=== PATIENT | female | born 2005 | race Caucasian/White ===

== ENCOUNTER 2025-02-11 11:20 | Emergency (ER) | payer BC, SELFPAY ==
[2025-02-11 11:29] VITALS: BP 116/62; PULSE 103; RESP 16; TEMP 36.9; O2SAT 98
--- NOTE | 2025-02-11 11:32 | ED_ITS ---
HPI - General Adult General Chief complaint: Unspecified Stated complaint: swollen vagina area Time Seen by Provider: 02/11/25 11:32 Source: patient and RN notes reviewed Mode of arrival: ambulatory Limitations: no limitations History of Present Illness HPI narrative: 19 y/o female presented for c/o waking up today with redness and swelling to vaginal area. Also reports itching and pain. Admits to new use of silicone sex toy, otherwise denies changes to products, soap, lotion, detergent. Denies vaginal discharge hematuria, nausea, vomiting, abdominal pain, flank pain, constipation, diarrhea, fevers or chills. Applied cool compresses to the area and took Motrin. Reports unprotected sexual activity with more than one partner. Denies concern for stating she has IUD. Related Data Home Medications ?Medication ?Instructions ?Recorded ?Confirmed ?Last Taken ?Type aripiprazole 2 mg tablet mg 02/11/25 Unknown History escitalopram oxalate 10 mg tablet mg 02/11/25 Unknown History fluvoxamine 50 mg tablet mg 02/11/25 Unknown History iud 02/11/25 Unknown History tirzepatide 5 mg/0.5 mL mg subcut 02/11/25 Unknown History subcutaneous pen injector (Mounjaro) Allergies Allergy/AdvReac Type Severity Reaction Status Date / Time No Known Allergies Allergy Verified 02/11/25 11:39 Review of Systems Review of Systems: CONSTITUTIONAL: Denies body aches, fever, chills, or sweats. CARDIOVASCULAR: Denies chest pain, palpitations, or edema. RESPIRATORY: Denies cough or dyspnea. GASTROINTESTINAL: Denies abdominal pain, nausea, vomiting, or diarrhea. GENITOURINARY: Reports swollen labia, denies dysuria, frequency, urgency, hematuria, flank pain SKIN: Denies rash, itching, or wounds. MUSCULOSKELETAL: Denies back pain or myalgia. PMFSH Comments At time of signature, I have reviewed and agree with nursing past medical, surgical, social and family history unless otherwise noted. Please see nursing chart for further information. There is no relevant family history pertinent to the presenting complaint Exam Narrative: GENERAL: Well-appearing ENT: Mucous membranes pink and moist. CHEST: No respiratory distress. Clear to auscultation. HEART: Regular rate and rhythm. ABDOMEN: Soft, mildly tender to suprapubic area, nondistended, normal active bowel sounds. No CVA tenderness : External labia swollen, tender, and mildly erythematous; no external lesions. vaginal introitus, pink. Dixon colored discharge from cervix with scant blood. No foreign body, laceration or lesions. Cervix closed. Chaperoned by Talita WOOD SKIN: Warm, dry, no rash. NEURO: No focal deficits. Alert and oriented x3. Gait steady. PSYCH: Normal affect. Course Course Emergency Course: Patient is aware of diagnosis, understands and agrees to treatment plan. Anticipatory guidance given. Patient agrees to follow-up as directed and is aware of reasons to seek care at the emergency department. Portions of this record may have been created with voice recognition software Level of Care: Express Care Visit Vital Signs Vital signs: Vital Signs Temperature 98.4 F 02/11/25 11:29 Pulse Rate 103 H 02/11/25 11:29 Respiratory Rate 16 02/11/25 11:29 Blood Pressure 116/62 02/11/25 11:29 Pulse Oximetry 98 02/11/25 11:29 Oxygen Delivery Room Air 02/11/25 11:29 Temperature 98.4 F 02/11/25 11:29 Pulse Rate 103 H 02/11/25 11:29 Respiratory Rate 16 02/11/25 11:29 Blood Pressure 116/62 02/11/25 11:29 Pulse Oximetry 98 02/11/25 11:29 Oxygen Delivery Room Air 02/11/25 11:29 Reviewed Medical Decision Making MDM Narrative Medical decision making narrative: Patient presenting with concern for STD. Vaginal swabs collected for GC, chlamydia, trich, BV and yeast. Informed Pt will be contacted w/ results when they become available if they are positive. Discussed with patient that it takes up to 7 days for results of cultures to be released and explained that we may treat empirically at this time. Declines treatment at this time and will return should tests be positive, agrees to treat possible yeast at this time. I have instructed the patient to return to the ER at any time if there are any new or worsening symptoms. The patient expressed understanding of and agreement with this plan. Differential Diagnosis Differential Diagnosis: vulvovaginitis, yeast, BV, STD, PID, HSV Vital Signs Vital Signs: Vital Signs Temperature 98.4 F 02/11/25 11:29 Pulse Rate 103 H 02/11/25 11:29 Respiratory Rate 16 02/11/25 11:29 Blood Pressure 116/62 02/11/25 11:29 Pulse Oximetry 98 02/11/25 11:29 Oxygen Delivery Room Air 02/11/25 11:29 Temperature 98.4 F 02/11/25 11:29 Pulse Rate 103 H 02/11/25 11:29 Respiratory Rate 16 02/11/25 11:29 Blood Pressure 116/62 02/11/25 11:29 Pulse Oximetry 98 02/11/25 11:29 Oxygen Delivery Room Air 02/11/25 11:29 Discharge Plan Discharge Clinical Impression: Acute vulvovaginitis, Concern about STD in female without diagnosis Patient Disposition: Home, Self-Care Condition: Stable Instructions: Antibiotic Form, Yeast Infection (ED) Additional Instructions: Keep skin clean, dry and well aerated Wear cotton underpants. Double rinse underpants after washing. Avoid fabric softeners for underpants and swimsuits. Avoid tights, leotards, leggings. Wearing loose fitting pants/skirts allow air to circulate. Avoid wearing wet swimsuits for long periods of time. Avoid bubble baths or perfumed soap Rinse genital area well and pat dry gently Cool compresses may help relieve the redness/irritation. Aquaphor, vaseline or A&D ointment may help protect the skin. Your urine has been sent off to test for gonorrhea, chlamydia, and trichomonas, BV and yeast infections. You will be called if any of your tests come back positive. These tests can take up to 5 days to come back. If your tests come back positive you will need further treatment, and you will need to notify any partners that you have so they can be tested and treated. To avoid reinfection, you are advised to abstain from sexual intercourse until you and sex partners have been treated (ie, after completing the 7-day antibiotic regimen, and any symptoms have resolved. You are treated for yeast today. If your symptoms worsen to include fever, abdominal pain, or back pain, please go to the hospital immediately. Follow up with your primary care provider/obgyn as needed in 1 week Go to the ER for worsening symptoms or concerns Patient Language: Hungarian Prescriptions: New fluconazole 150 mg tablet 150 mg PO DAILY Qty: 2 0RF No Action fluvoxamine 50 mg tablet escitalopram oxalate 10 mg tablet aripiprazole 2 mg tablet Mounjaro 5 mg/0.5 mL pen injector SUBCUT iud Follow-up/Referrals: PHYSICIAN,RADIOLOGIC TECHNOLOGIST CHIEF [Primary Care Provider] - Stand Alone Forms: Work/School Release IP
--- NOTE | 2025-02-11 12:04 | PC.NURSE ---
pelvic exam done by furnace clerk with rn at bedside. bv, gc, chlam, trich, and yeast swabs obtained.
--- OUTSIDE RECORDS SUMMARY | 2025-02-11 12:16 | XMS_ITS | Clinical Summary ---
Author Organization 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 - [facility] [place] [address] [place] [address] Tiffanie Arguelles, MAINTENANCE PLUMBER, AUTOMOTIVE AIRCONDITIONING MECHANIC Viral URI (Primary Dx); Sore throat Discharge Disposition: Discharged to home or Selfcare 12/20/2024 Travel from Last 3 Months Immunizations Immunization Administration Dates Next Due Covid-19, Mrna, Lnp-s, Pf, 3 0 Mcg/0.3 Ml Dose ([employer]) 06/25/2021,06/04/2021 DTAP VACCINE 09/24/2006 DTAP VACCINE, 5 PERTUSSIS AN TIGENS, VACCINE IM 2005,2005,2005 HEP B/HIB Combined Vaccine 03/18/2006,2005 ,2005 MMR Vaccine 03/18/2006 Pneumococcal Vaccine Peds - 7 Valent 11/2005,2005,2005,2004 Polio Vaccine,unspecified Formulation 06/17/2006 ,2005,2005 Varicella Vaccine Live 03/18/2006 Social History Tobacco Use Types Packs/Day Years Used Date Smoking Tobacco: Every Day Cigarettes Smokeless Tobacco: Never Tobacco Cessation:Ready to Q uit: Not Asked; Counseling Given: Not Answered Comments No Sex and Gender Information Value Date Recorded Sex Assigned at Not on file Legal Sex Female 12:00 PM OYSTER FARMER Gender Identity Not on file Sexual Orientation Not on file Last Filed Vital Signs Vital Sign Reading Time Taken Comments Blood Pressure 106/60 12/20/2024 12:57 PM OYSTER FARMER Pulse 98 12/20/2024 12:57 PM OYSTER FARMER Temperature 36.3 C (97.3 F) 12/20/2024 12:57 PM OYSTER FARMER Respiratory Rate 16 12/20/2024 12:57 PM OYSTER FARMER Oxygen Saturation 99% 12/20/2024 12:57 PM OYSTER FARMER Inhaled Oxygen Concentration - - Weight - - Height - - Body Mass Index - - Plan of Treatment Health Maintenance Due Date Last Done Comments Hepatitis C Virus (HCV) Screening 2005 DTaP/Tdap/Td Immunization (5 - Tdap) 2012 09/24/2006, 2005, 2005, Additional history exists Human Papillomavirus (HPV) Immunization (1 - 3-dose series) 2020 Meningococcal B Immunization (1 of 2 - Standard) 2021 Influenza Immunization (#1) 2024 SARS-COV-2 Immunization (3 - season) 2024 06/25/2021, 06/04/2021 Respiratory Syncytial Virus (RSV) Immunization (Adult) (1 - 1-dose 75+ series) 2080 Hepatitis B Immunization Completed 006, 2005, 2005 Pneumococcal Immunization Combined Aged Out 06/17/2006, 2005, 2005, Additional history exists No longer eligible based on patient's age to complete this topic Meningococcal Immunization (ACWY) Aged Out No longer eligible based on patient's age to complete this topic Rotavirus Immunization Aged Out No lo nger eligible based on patient's age to complete this topic Procedures Procedure Name Priority Date/Time Associated Diagnosis Comments POC GROUP A STREP BY MOLECULAR Routine 12/20/2024 1:05 PM OYSTER FARMER Sore throat from Last 3 Months Results * POC GROUP A STREP BY MOLECULAR (12/20/2024 1:05 PM OYSTER FARMER) STREP A DNA Negative Negative, Invalid PROCEDURE CONTROL Valid Swab 12/20/2024 1:05 PM OYSTER FARMER Tiffanie Arguelles MAINTENANCE PLUMBER, AUTOMOTIVE AIRCONDITIONING MECHANIC POINT OF CARE TESTI NG (MANUAL) Final Result from Last 3 Months Insurance [facility] [place] [id number] [facility] Care Teams Co Teacher Relationship Specialty Start Date End Date Provider, Unknown UNKNOWN PCP - General 12/20/24
[2025-02-11 18:55] LABS: Trichomonas Vag PCR DETECTED (NOT DETECTE)
[2025-02-11 19:32] LABS: Chlamydia trachomatis DETECTED (NOT DETECTE); Neisseria gonorrhoeae PCR NOT DETECTED (NOT DETECTE)
[2025-02-14 16:57] LABS: Bacterial Vaginosis NEGATIVE (NEGATIVE)
== END 2025-02-11 12:20 | disposition home or self-care (01) ==
PROVIDERS: Emergency Provider Nurse Practitioner Family
DX: N76.0 Acute vaginitis (principal); Z11.3 Encounter for screening for infections with a predominantly sexual mode of transmission
CPT/HCPCS: 81513; 87070; 87491; 87591; 87661; 99203; G0463

== ENCOUNTER 2025-03-01 16:44 | Emergency (ER) | payer BC, SELFPAY ==
[2025-03-01 16:46] VITALS: BP 102/68; PULSE 90; RESP 20; TEMP 36.9; O2SAT 99
--- OUTSIDE RECORDS SUMMARY | 2025-03-01 17:00 | XMS_ITS | Clinical Summary ---
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 Urgent Care Visit [facility] - [facility] [place] [address] [place] [address] Tiffanie Arguelles, SITE SURVEYOR, APARTMENT RENTAL AGENT Viral URI (Primary Dx); Sore throat Discharge Disposition: Discharged to home or Selfcare 12/20/2024 Travel from Last 3 Months Immunizations Immunization Administration Dates Next Due Covid-19, Mrna, Lnp-s, Pf, 3 0 Mcg/0.3 Ml Dose ([employer]) 06/25/2021,06/04/2021 DTAP VACCINE 09/24/2006 DTAP VACCINE, 5 [...] on file Legal Sex Female 12:00 PM PASTE PLANT SUPERVISOR Gender Identity Not on file Sexual Orientation Not on file Last Filed Vital Signs Vital Sign Reading Time Taken Comments Blood Pressure 106/60 12/20/2024 12:57 PM PASTE PLANT SUPERVISOR Pulse 98 12/20/2024 12:57 PM PASTE PLANT SUPERVISOR Temperature 36.3 C (97.3 F) 12/20/2024 12:57 PM PASTE PLANT SUPERVISOR Respiratory Rate 16 12/20/2024 12:57 PM PASTE PLANT SUPERVISOR Oxygen Saturation 99% 12/20/2024 12:57 PM PASTE PLANT SUPERVISOR Inhaled Oxygen Concentration - - Weight - [...] STREP BY MOLECULAR Routine 12/20/2024 1:05 PM PASTE PLANT SUPERVISOR Sore throat from Last 3 Months Results * POC GROUP A STREP BY MOLECULAR (12/20/2024 1:05 PM PASTE PLANT SUPERVISOR) STREP A DNA Negative Negative, Invalid PROCEDURE CONTROL Valid Swab 12/20/2024 1:05 PM PASTE PLANT SUPERVISOR Tiffanie Arguelles SITE SURVEYOR, APARTMENT RENTAL AGENT POINT OF CARE TESTI NG (MANUAL) Final Result from Last 3 Months [place] [id number] [facility] Care Teams Oncology Rep Specialist Relationship Specialty Start Date End Date Provider, Unknown UNKNOWN PCP - General 12/20/24
--- NOTE | 2025-03-01 17:59 | ED.URI ---
HPI - URI/Sore Throat General Chief Complaint: Upper Respiratory Infection Stated Complaint: sinus issues Time Seen by Provider: 03/01/25 17:40 Source: patient, RN notes reviewed and old records reviewed Mode of arrival: ambulatory Limitations: no limitations History of Present Illness HPI Narrative: 19 year old female who presents to [facility] care with runny nose, cough, itchy eyes and sneezing for the past 6 days. Patient reports that she does have history of seasonal allergies and has been ttaking Claritin and also Mucinex which is not helping. Patient reports that her cough is worse at night. Patient reports no fevers, chills or sweats or any body aches. MD elicited complaint: cough, rhinorrhea, nasal congestion and other (itchy eyes and sneezing) Pertinent past history: seasonal allergies Onset (ago): day(s) (6) Severity: moderate Description of mucous: clear Able to tolerate fluids by mouth: Yes Treatments prior to arrival: other (Claritin and Mucinex) Related Data Home Medications ?Medication ?Instructions ?Recorded ?Confirmed ?Last Taken ?Type aripiprazole 2 mg tablet mg 02/11/25 Unknown History fluvoxamine 50 mg tablet mg 02/11/25 Unknown History iud 02/11/25 Unknown History Allergies Allergy/AdvReac Type Severity Reaction Status Date / Time No Known Allergies Allergy Verified 03/01/25 16:54 Review of Systems Review of Systems: CONSTITUTIONAL: Reports malaise,no chills, sweats, or fever. EYES: Denies visual changes, redness, or discharge. ENT: Reports rhinorrhea, congestion, sinus pressure, no otalgia and no sore throat. CARDIOVASCULAR: Denies chest pain, palpitations, or edema. RESPIRATORY: Reports cough.? Denies dyspnea. GASTROINTESTINAL: Denies abdominal pain, nausea, vomiting, diarrhea SKIN: Denies rash or itching. MUSCULOSKELETAL: Denies myalgia. NEUROLOGIC: Denies headache. All systems reviewed & are unremarkable except as noted in HPI and below PMFSH Past Medical History Medical History (Updated 03/03/25 @ 11:12 by Hanh Diaz NP) Seasonal allergies Anxiety and depression Surgical History Surgical History (Updated 03/03/25 @ 11:11 by Hanh Diaz NP) History of tonsillectomy Social History Social History (Updated 03/03/25 @ 11:11 by Hanh Diaz NP) Smoking status: Never smoker Alcohol intake: unknown Substance use: unknown Living arrangements: with family Occupation/Education: student Gender identity (if verbalized by the patient): Female Comments At time of signature, agree with nursing past medical, surgical, social and family history. There is no relevant family history pertinent to the presenting complaint Exam Narrative: GENERAL: Well-appearing, well-nourished, and in no acute distress. HEAD: Normocephalic EYES: PERRLA, conjunctivae clear ENT: Nares clear, turbinates edematous and erythematous, clear discharge, sinus pressure,. Mucous membranes moist. TM pearly burch with dull light reflex bilaterally; no tragal tenderness. Oropharynx erythematous without lesions. Tonsils not present and throat without exudate, no drooling, no hoarseness, no trismus, uvula midline.post nasal drainage NECK: Supple. No lymphadenopathy CHEST: Clear to auscultation, breath sounds equal. No wheezing, rhonchi, rales, or stridor. No respiratory distress, speaks in full sentences.cough productive clear mucous at times, SAO2 99% on room air HEART: Regular rate and rhythm. No murmur heard. SKIN: Warm, dry, no rash. NEURO: Alert and oriented x3. PSYCH: Normal mood and affect Course Course Emergency Course: Patient is aware of diagnosis, understands and agrees to treatment plan.? Anticipatory guidance given.? Patient agrees to follow-up as directed and is aware of reasons to seek care at the emergency department. Portions of this record may have been created with voice recognition software Level of Care: Express Care Visit Vital Signs Vital signs: Vital Signs Temperature 36.9 C 03/01/25 16:46 Pulse Rate 90 03/01/25 16:46 Respiratory Rate 20 03/01/25 16:46 Blood Pressure 102/68 03/01/25 16:46 Pulse Oximetry 99 03/01/25 16:46 Oxygen Delivery Room Air 03/01/25 16:46 Temperature 36.9 C 03/01/25 16:46 Pulse Rate 90 03/01/25 16:46 Respiratory Rate 20 03/01/25 16:46 Blood Pressure 102/68 03/01/25 16:46 Pulse Oximetry 99 03/01/25 16:46 Oxygen Delivery Room Air 03/01/25 16:46 Reviewed MDM - URI/Sore Throat MDM Narrative Medical decision making narrative: Differential diagnosis considered: Hernandez virus, strep pharyngitis, allergic rhinitis, upper respiratory tract infection, sinusitis, rhinosinusitis, nasopharyngitis. viral pharyngitis, otitis media, otitis externa, pneumonia, bronchitis, viral cough syndrome, viral syndrome, and influenza.? Exam findings show no acute concerns or changes; patient is non-toxic appearing and is in no distress.? Patient is appropriate for outpatient treatment and follow-up. Differential Diagnosis Differential diagnosis: Likely upper respiratory infection, sinusitis, viral infection and other (allergic rhinitis) Medical Records Attestation: I reviewed the patient's medical records. Lab Data Attestation: I reviewed the patient's lab results. Lab results narrative: Influenza A negative, Influenza B negative, COVID antigen negative Labs: Lab Results 03/01/25 Range/Units 18:13 POC Influenza A Ag Negative (Negative) POC Influenza B Ag Negative (Negative) POC SARS CoV-2 Ag Negative (Negative) reviewed Critical Care Time Critical Care Time Critical Care Time: No Discharge Plan Discharge Clinical Impression: Upper respiratory infection Qualifiers: URI type: unspecified URI Qualified Code(s): J06.9 - Acute upper respiratory infection, unspecified Patient Disposition: Home Condition: Stable Instructions: Upper Respiratory Infection (ED) Additional Instructions: Increase fluids especially juices and water [id number] cough and cold medicine of your choice for your symptoms Zyrtec Claritin or Wendi daily include plain Sudafed tab in the morning heat to the face 20-30 minutes 4-6 times a day for pain Salt water gargles, throat lozenges or throat sprays as desired Tylenol or ibuprofen for any fever pain If your symptoms persist, change or worsen significantly before you can contact your personal physician then please, without delay, go to the emergency department for further evaluation. Follow-up with PCP in 7-10 days or sooner if needed Patient Language: Montenegrin Prescriptions: No Action fluvoxamine 50 mg tablet aripiprazole 2 mg tablet iud fluconazole 150 mg tablet 150 mg PO DAILY Qty: 2 0RF Follow-up/Referrals: UNKNOWN,DOCTOR [Primary Care Provider] - Stand Alone Forms: Work/School Release IP Time of Disposition: 18:10 Quality Egnar Coma Scale Eyes: Open Verbal: Oriented and Alert Motor: Follows Commands Vianey Coma Total Score: 15
[2025-03-01 18:15] LABS: EDCOVIDSCREEN Negative (Negative); EDINFLUASCREEN Negative (Negative); EDINFLUBSCREEN Negative (Negative)
== END 2025-03-01 18:18 | disposition home or self-care (01) ==
PROVIDERS: Emergency Provider Registered Nurse
DX: J06.9 Acute upper respiratory infection, unspecified (principal); Z20.822 Contact with and (suspected) exposure to COVID-19
CPT/HCPCS: 87426; 87804; 99212; G0463

== ENCOUNTER 2025-05-13 13:31 | Emergency (ER) | payer BC, SELFPAY ==
[2025-05-13 13:40] VITALS: BP 122/61; PULSE 94; RESP 16; TEMP 36.6; O2SAT 100
--- NOTE | 2025-05-13 13:41 | ED.NAVMDI ---
HPI - Nausea/Vomiting/Diarrhea General Chief complaint: Nausea/Vomiting/Diarrhea Stated complaint: Vomiting Time Seen by Provider: 05/13/25 13:41 Source: patient Mode of arrival: ambulatory Limitations: no limitations History of Present Illness HPI Narrative: 20-year-old female presents with complaint of nausea and vomiting for 1 day. Reports that she has unable to keep down any food or fluids. Reports drinking water and vomiting it right back up. Tried an [id number] nausea medication yesterday that did not help. No significant abdominal pain. Afebrile. All systems reviewed and negative except as noted above. Related Data Home Medications ?Medication ?Instructions ?Recorded ?Confirmed ?Last Taken ?Type aripiprazole 2 mg tablet mg 02/11/25 Unknown History fluvoxamine 50 mg tablet mg 02/11/25 Unknown History iud 02/11/25 Unknown History Allergies Allergy/AdvReac Type Severity Reaction Status Date / Time No Known Allergies Allergy Verified 03/01/25 16:54 Review of Systems Review of Systems: CONSTITUTIONAL: Denies fever, chills, or sweats. EYES: Denies visual changes, redness, or discharge. ENT: Denies rhinorrhea, congestion, sore throat, or otalgia. CARDIOVASCULAR: Denies chest pain, palpitations, or edema. RESPIRATORY: Denies cough or dyspnea. GASTROINTESTINAL: Denies abdominal pain . Reports nausea, vomiting. Denies diarrhea. GENITOURINARY: Denies dysuria or hematuria. SKIN: Denies rash or itching. MUSCULOSKELETAL: Denies back pain, joint pain, or myalgia. NEUROLOGIC: Denies headache, numbness, or weakness. PSYCHIATRIC: Denies anxiety or depression. All other systems reviewed are negative, except as documented in HPI. [facility] Past Medical History Medical History (Updated 05/13/25 @ 14:07 by Purnima Lerma NP) Seasonal allergies Anxiety and depression Surgical History Surgical History (Updated 03/03/25 @ 11:11 by Hanh Diaz NP) History of tonsillectomy Social History Social History (Updated 03/03/25 @ 11:11 by Hanh Diaz NP) Smoking status: Never smoker Alcohol intake: unknown Substance use: unknown Living arrangements: with family Occupation/Education: student Gender identity (if verbalized by the patient): Female Comments At time of signature, agree with nursing past medical, surgical, social and family history. There is no relevant family history pertinent to the presenting complaint. Exam Narrative: GENERAL: This is a well-nourished, well-developed patient, in no apparent distress. HEAD: normocephalic, atraumatic. EYES: PERRL. Sclera clear/white. Vision is grossly intact. EARS: External ears normal NOSE: External nose normal NECK: Neck supple, non-tender without lymphadenopathy, masses or thyromegaly. CARDIOVASCULAR: Regular rate and rhythm without murmurs, gallops, or rubs. RESPIRATORY: Clear to auscultation. Breath sounds equal bilaterally. No wheezes, rales, or rhonchi. GASTROINTESTINAL: Abdomen soft, non-tender, nondistended. Bowel sounds are active. No hepato-splenomegaly, or palpable masses. No guarding. SKIN: warm, Dry, intact with no suspicious lesions or rash, good texture and turgor. NEURO: awake, alert, and oriented to person, place and time. There were no obvious focal neurologic abnormalities. EXTREMITIES: No joint tenderness, effusion, or edema noted. Course Course Level of Care: Express Care Visit Vital Signs Vital signs: Vital Signs Temperature 36.6 C 05/13/25 13:40 Pulse Rate 94 05/13/25 13:40 Respiratory Rate 16 05/13/25 13:40 Blood Pressure 122/61 05/13/25 13:40 Pulse Oximetry 100 05/13/25 13:40 Oxygen Delivery Room Air 05/13/25 13:40 Temperature 36.6 C 05/13/25 13:40 Pulse Rate 94 05/13/25 13:40 Respiratory Rate 16 05/13/25 13:40 Blood Pressure 122/61 05/13/25 13:40 Pulse Oximetry 100 05/13/25 13:40 Oxygen Delivery Room Air 05/13/25 13:40 reviewed MDM - Nausea/Vomiting/Diarrhea MDM Narrative Medical decision making narrative: PO challenge patient with water after taking ondansetron ODT. Was able to keep down water without vomiting. Patient is well-appearing, nontoxic. No abdominal pain or tenderness. Recommend follow-up with primary care physician as needed. Differential Diagnosis Differential diagnosis: Likely gastroenteritis Discharge Plan Discharge Clinical Impression: Viral gastroenteritis Patient Disposition: Home Condition: Stable Instructions: Gastroenteritis (ED) Additional Instructions: take medication as prescribed to treat nausea and vomiting. Take ibuprofen or Tylenol every 6 hours as needed for pain and fever. Drink at least 64 oz of water a day. If you are concerned for dehydration or have severe abdominal pain go to the ER. Patient Language: Maori Prescriptions: New ondansetron 4 mg tablet,disintegrating 4 mg PO Q8H PRN (Reason: nausea and vomiting) Qty: 12 0RF No Action fluvoxamine 50 mg tablet aripiprazole 2 mg tablet iud fluconazole 150 mg tablet 150 mg PO DAILY Qty: 2 0RF Follow-up/Referrals: PHYSICIAN,DATA ADMINISTRATOR [Primary Care Provider] - Stand Alone Forms: Work/School Release IP Time of Disposition: 14:12
[2025-05-13] MEDS: ONDANSETRON HCL ODT 4 MG TABLET SUBLINGUAL (13:51)
--- NOTE | 2025-05-13 14:28 | PC.NURSE ---
Twenty minutes after zofran gave patient po challenge. Tolerated well. No vomiting while in express care.
== END 2025-05-13 14:20 | disposition home or self-care (01) ==
PROVIDERS: Emergency Provider Nurse Practitioner Family
DX: A08.4 Viral intestinal infection, unspecified (principal)
CPT/HCPCS: 99213; A9270; G0463

== ENCOUNTER 2025-05-30 14:34 | Emergency (ER) | payer BC, SELFPAY ==
--- OUTSIDE RECORDS SUMMARY | 2025-05-30 14:39 | XMS_ITS | Clinical Summary ---
Author Organization [facility] Address [address] [place] [address] Phone Care Team Providers Care School Admissions Representative Name Role Phone Provider, Unknown Primary Care Provider Unavaila ble Allergies No known active allergies Medications ARIPiprazole (ABILIFY) 2 MG Tablet take 1 tablet by mouth every 24 hours 12/06/2024 Active Active Problems No known active problems Immunizations Immunization Administration Dates Next Due Covid-19, Mrna, Lnp-s, Pf, 3 0 Mcg/0.3 Ml Dose ([email or web address]) 06/25/2021,06/04/2021 DTAP VACCINE 09/24/2006 DTAP VACCINE, 5 [...] on file Legal Sex Female 12:00 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 Gender Identity Not on file Sexual Orientation Not on file Last Filed Vital Signs Vital Sign Reading Time Taken Comments Blood Pressure 106/60 12/20/2024 12:57 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 Pulse 98 12/20/2024 12:57 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 Temperature 36.3 C (97.3 F) 12/20/2024 12:57 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 Respiratory Rate 16 12/20/2024 12:57 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 Oxygen Saturation 99% 12/20/2024 12:57 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 Inhaled Oxygen Concentration - - Weight - [...] 2021 Influenza Immunization (#1) 2024 SARS-COV-2 Immunization ( - season) 2024 06/25/2021, 06/04/2021 Respiratory Syncytial [...] on patient's age to complete this topic Insurance [facility] Care Teams School Admissions Representative Relationship Specialty Start Date End Date Provider, Unknown UNKNOWN PCP - General 12/20/24
[2025-05-30 14:49] VITALS: BP 125/67; PULSE 101; RESP 16; TEMP 36.4; O2SAT 99
--- NOTE | 2025-05-30 14:56 | ED.FEMALEGU ---
HPI - Female Genitourinary General Chief complaint: DOCTOR OF NURSE ANESTHESIA Stated complaint: STD Time Seen by Provider: 05/30/25 14:35 Source: patient and RN notes reviewed Mode of arrival: ambulatory Limitations: no limitations History of Present Illness HPI Narrative: 20-year-old female presents Express Care complaining of cold sores morning STD testing. Patient said she called off from work today because of her cold sores being painful. She was told she needs a work note to return to work. Patient also would like to be retested for STDs because she did not fully complete the antibiotic treatment when she was treated for chlamydia and Trichomonas back in January of 2025. Patient says she had about a day left of each antibiotic and stopped taking them. Patient reports having an abnormal smell from her vagina current. Patient denies any urinary symptoms, vaginal discharge, fevers, body aches, chills, nausea, vomiting, pelvic pain, abdominal pain, vaginal bleeding, painful intercourse, or any other symptoms. Related Data Home Medications ?Medication ?Instructions ?Recorded ?Confirmed ?Last Taken ?Type aripiprazole 2 mg tablet mg 02/11/25 Unknown History fluvoxamine 50 mg tablet mg 02/11/25 Unknown History iud 02/11/25 Unknown History Allergies Allergy/AdvReac Type Severity Reaction Status Date / Time No Known Allergies Allergy Verified 03/01/25 16:54 Review of Systems Review of Systems: CONSTITUTIONAL: Denies fever, chills, or sweats. EYES: Denies visual changes, redness, or discharge. ENT: Denies rhinorrhea, congestion, sore throat, or otalgia. CARDIOVASCULAR: Denies chest pain, palpitations, or edema. RESPIRATORY: Denies cough or dyspnea. GASTROINTESTINAL: Denies abdominal pain, nausea, vomiting, or diarrhea. GENITOURINARY: Denies dysuria, vaginal discharge, vaginal bleeding, pelvic pain, painful intercourse, or hematuria. Positive for abnormal smell of vagina. SKIN: Denies rash or itching. MUSCULOSKELETAL: Denies back pain, joint pain, or myalgia. NEUROLOGIC: Denies headache, numbness, or weakness. PSYCHIATRIC: Denies anxiety or depression. All other systems reviewed are negative, except as documented in HPI. REPLACED BY [facility] Past Medical History Medical History Seasonal allergies Anxiety and depression Surgical History Surgical History History of tonsillectomy Social History Social History Smoking status: Never smoker Alcohol intake: unknown Substance use: unknown Living arrangements: with family Occupation/Education: student Gender identity (if verbalized by the patient): Female Comments At the time of my signature, I reviewed and agree with the nursing past medical, surgical, social, and family history. There is no relevant family history pertinent to the patient complaint. Exam Narrative: GENERAL: This is a well-nourished, well-developed adult, in no apparent distress. They are non ill-appearing, nontoxic appearing. HEAD: normocephalic, atraumatic. EYES: Sclera clear/white. Conjunctiva normal. Vision is grossly intact. Extraocular movements intact EARS: External ears normal, Hearing grossly intact. NOSE: External nose normal THROAT: Mucous membranes moist, NECK: Neck supple, CARDIOVASCULAR: Regular rate and rhythm RESPIRATORY: Respiratory rate normal, respiratory effort nonlabored, no respiratory distress GASTROINTESTINAL: Abdomen soft, non-tender, nondistended. GENITOURINARY: Patient declined pelvic exam and speculum exam. SKIN: warm, Dry, intact with no suspicious lesions or rash, good texture and turgor. NEURO: awake, alert, and oriented to person, place and time. There were no obvious focal neurologic abnormalities. EXTREMITIES: No joint tenderness, effusion, or edema noted. Course Course Emergency Course: Portions of this record may have been created with voice recognition software Level of Care: Express Care Visit Vital Signs Vital signs: Vital Signs Temperature 97.5 F L 05/30/25 14:49 Pulse Rate 101 H 05/30/25 14:49 Respiratory Rate 16 05/30/25 14:49 Blood Pressure 125/67 05/30/25 14:49 Pulse Oximetry 99 05/30/25 14:49 Oxygen Delivery Room Air 05/30/25 14:49 Temperature 97.5 F L 05/30/25 14:49 Pulse Rate 101 H 05/30/25 14:49 Respiratory Rate 16 05/30/25 14:49 Blood Pressure 125/67 05/30/25 14:49 Pulse Oximetry 99 05/30/25 14:49 Oxygen Delivery Room Air 05/30/25 14:49 Reviewed MDM - Female Genitourinary MDM Narrative Medical decision making narrative: Offered patient pelvic exam along with speculum exam for further evaluation of her symptoms and she declined. Patient would like to be tested for STDs and will provide urine sample. Chlamydia, gonorrhea, Trichomonas or pending. Patient elected to wait for STD results prior to any initiation of treatment. Patient advised to remain abstinent until she knows her results or she has completed a full treatment, and if she ends up with treatment for another STD to complete the course fully. Patient also has cold sores. Discussed physical exam findings. Advised supportive measures and signs/symptoms to go to the ER. Pt is appropriate for outpt treatment and f/u. Differential Diagnosis Differential diagnosis: Likely bacterial vaginosis and other (Cold sores, STDs) Critical Care Time Critical Care Time Critical Care Time: No Discharge Plan Discharge Clinical Impression: Concern about STD in female without diagnosis, Cold sore Patient Disposition: Home Condition: Stable Instructions: Sexually Transmitted Diseases (ED), Safe Sex Practices (ED) Additional Instructions: ?Your urine sample has been sent off to test for gonorrhea, chlamydia, and trichomonas infections. ?These tests can take up to 1-3 days to come back. You Will be notified the results once they have resulted. Please remain abstinent until you know your results or have completed full treatment for an STD. Follow-up with PCP in 3-5 days. If your symptoms worsen, you developed fever, abdominal pain, nausea, vomiting, vaginal bleeding, pelvic pain or any other concerns please go to the ER immediately. Patient Language: Kyrgyz Prescriptions: No Action fluvoxamine 50 mg tablet aripiprazole 2 mg tablet iud fluconazole 150 mg tablet 150 mg PO DAILY Qty: 2 0RF Follow-up/Referrals: Yovanny Stubbs MD [Physician] - Stand Alone Forms: Work/School Release IP Time of Disposition: 14:54
[2025-05-30 19:35] LABS: Trichomonas Vag PCR DETECTED (NOT DETECTE)
== END 2025-05-30 15:06 | disposition home or self-care (01) ==
DX: B00.1 Herpesviral vesicular dermatitis (principal); A59.9 Trichomoniasis, unspecified
CPT/HCPCS: 87491; 87591; 87661; 99213; G0463

== ENCOUNTER 2025-06-07 08:32 | Emergency (ER) | payer BC, SELFPAY ==
[2025-06-07 08:36] VITALS: BP 113/75; PULSE 79; RESP 14; TEMP 36.5; O2SAT 100
--- OUTSIDE RECORDS SUMMARY | 2025-06-07 08:37 | XMS_ITS | Clinical Summary ---
Author Organization [facility] Address [address] [place] [address] Phone Care Team Providers Care Hot Metal Mixer Operator Name Role Phone Provider, Unknown Primary Care Provider Unavaila ble Allergies No known active allergies Medications ARIPiprazole (ABILIFY) 2 MG Tablet take 1 tablet by mouth every 24 hours 12/06/2024 Active Active Problems No known active problems Immunizations Immunization Administration Dates Next Due Covid-19, Mrna, Lnp-s, Pf, 3 0 Mcg/0.3 Ml Dose ([email or web address]) 06/25/2021,06/04/2021 DTAP VACCINE 09/24/2006 DTAP VACCINE, 5 [...] on file Legal Sex Female 12:00 PM 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 Gender Identity Not on file Sexual Orientation Not on file Last Filed Vital Signs Vital Sign Reading Time Taken Comments Blood Pressure 106/60 12/20/2024 12:57 PM 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 ARCHITECT Pulse 98 12/20/2024 12:57 PM 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 ARCHITECT Temperature 36.3 C (97.3 F) 12/20/2024 12:57 PM 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 ARCHITECT Respiratory Rate 16 12/20/2024 12:57 PM 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 ARCHITECT Oxygen Saturation 99% 12/20/2024 12:57 PM 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 ARCHITECT Inhaled Oxygen Concentration - - Weight - [...] patient's age to complete this topic Insurance [facility] Care Teams Hot Metal Mixer Operator Relationship Specialty Start Date End Date Provider, Unknown UNKNOWN PCP - General 12/20/24
[2025-06-07 08:57] LABS: EDUAAPPEAR Cloudy; EDUABILI Negative (Negative); EDUABLOOD Trace (Negative); EDUACOLOR1 Light/Pale; EDUAGLUCOSE Negative (Negative); EDUAKETONE Negative (Negative); EDUALEUKO 1+ (Negative); EDUANITRATE Negative (Negative); EDUAPH 6.5; EDUAPROTEIN Negative (Negative); EDUASPGRAVITY 1.015; EDUAUROBILI 0.2
--- NOTE | 2025-06-07 08:57 | ED.FEMALEGU ---
HPI - Female Genitourinary General Chief complaint: Urogenital-Female Stated complaint: Urinary Problem Time Seen by Provider: 06/07/25 08:58 Source: patient and RN notes reviewed Mode of arrival: ambulatory Limitations: no limitations History of Present Illness HPI Narrative: 20-year-old female presents with concern for urine frequency. She reports she finished antibiotics for Trichomonas. Reports the symptoms she was having of STI have resolved but she still having urine frequency. She denies fever, aches, chills, nausea, vomiting, abdominal pain or back pain. She is requesting to be retested for STI. MD elicited complaint: UTI Related Data Home Medications ?Medication ?Instructions ?Recorded ?Confirmed ?Last Taken ?Type aripiprazole 2 mg tablet mg 02/11/25 Unknown History fluvoxamine 50 mg tablet mg 02/11/25 Unknown History iud 02/11/25 Unknown History Allergies Allergy/AdvReac Type Severity Reaction Status Date / Time No Known Allergies Allergy Verified 03/01/25 16:54 Review of Systems Review of Systems: CONSTITUTIONAL: Denies malaise, chills, sweats, or fever. CARDIOVASCULAR: Denies chest pain, palpitations, or edema. RESPIRATORY: Denies cough or dyspnea. GASTROINTESTINAL: Denies abdominal pain, nausea, vomiting, diarrhea GENITOURINARY: Reports urine frequency. Denies vaginal discharge, dysuria, urgency, suprapubic pressure. Denies flank pain or hematuria. SKIN: Denies rash or itching. MUSCULOSKELETAL: Denies back pain or myalgia. All systems reviewed & are unremarkable except as noted in HPI and below PMFSH Past Medical History Medical History Seasonal allergies Anxiety and depression Surgical History Surgical History History of tonsillectomy Social History Social History Smoking status: Never smoker Alcohol intake: unknown Substance use: unknown Living arrangements: with family Occupation/Education: student Gender identity (if verbalized by the patient): Female Comments At time of signature, agree with nursing past medical, surgical, social and family history. There is no relevant family history pertinent to the presenting complaint Exam Narrative: GENERAL: Well-appearing, well-nourished, and in no acute distress. HEAD: Normocephalic. EYES: PERRLA, conjunctivae clear. NECK: Supple. No lymphadenopathy CHEST: Clear to auscultation. No respiratory distress. HEART: Regular rate and rhythm. ABDOMEN: Soft, nontender upon palpation, nondistended, normal active bowel sounds, no palpable or pulsatile masses, no guarding. No CVA tenderness SKIN: Warm, dry, no rash. NEURO: Alert and oriented x3. PSYCH: Normal mood and affect Course Course Emergency Course: Patient is aware of diagnosis, understands and agrees to treatment plan. Anticipatory guidance given. Patient agrees to follow-up as directed and is aware of reasons to seek care at the emergency department. Portions of this record may have been created with voice recognition software Level of Care: Express Care Visit Vital Signs Vital signs: Vital Signs Temperature 97.7 F 06/07/25 08:36 Pulse Rate 79 06/07/25 08:36 Respiratory Rate 14 06/07/25 08:36 Blood Pressure 113/75 06/07/25 08:36 Pulse Oximetry 100 06/07/25 08:36 Oxygen Delivery Room Air 06/07/25 08:36 Temperature 97.7 F 06/07/25 08:36 Pulse Rate 79 06/07/25 08:36 Respiratory Rate 14 06/07/25 08:36 Blood Pressure 113/75 06/07/25 08:36 Pulse Oximetry 100 06/07/25 08:36 Oxygen Delivery Room Air 06/07/25 08:36 Reviewed. MDM - Female Genitourinary MDM Narrative Medical decision making narrative: Exam findings and UA show no acute concerns or changes; patient is non-toxic appearing and is in no distress. Patient is appropriate for outpatient treatment and follow-up. Differential Diagnosis Differential diagnosis: Likely urinary tract infection and cystitis Lab Data Labs: Lab Results 06/07/25 Range/Units 08:54 POC Urine Color Light/pale POC Urine Clarity Cloudy POC Urine pH 6.5 POC Ur Specif Hayden 1.015 POC Urine Protein Negative (Negative) POC Ur Glucose (UA) Negative (Negative) POC Urine Ketones Negative (Negative) POC Urine Blood Trace (Negative) POC Urine Nitrite Negative (Negative) POC Urine Bilirubin Negative (Negative) POC Urine Urobilinogen 0.2 POC U Leukocyte Esteras 1+ (Negative) Critical Care Time Critical Care Time Critical Care Time: No Discharge Plan Discharge Clinical Impression: Urine frequency Patient Disposition: Home Condition: Stable Instructions: Urinary Urgency and Frequency (DC) Additional Instructions: We will send a urine culture to the lab; if the culture identifies an organism that requires antibiotic, you will receive a phone call from an urgent care staff member and an appropriate antibiotic will be prescribed. You have been tested for potential gonorrhea, chlamydia, and trichomoniasis today. You will receive a phone call in 2-3 days with the results of today's testing. -Also recommend: increase water intake. Tylenol/ibuprofen as needed for pain or fever -Follow-up with your primary care provider for urine recheck or seek ER visit if condition worsens with high fever, nausea, vomiting and severe back pain. Patient Language: Prydeinig Prescriptions: No Action fluvoxamine 50 mg tablet aripiprazole 2 mg tablet iud fluconazole 150 mg tablet 150 mg PO DAILY Qty: 2 0RF metronidazole 500 mg tablet 500 mg PO BID 7 Days Qty: 14 0RF Follow-up/Referrals: PHYSICIAN,PASSENGER TIRE INSPECTOR [Primary Care Provider] - Time of Disposition: 09:04
[2025-06-10 14:03] LABS: Trichomonas Vag PCR NOT DETECTED (NOT DETECTE)
== END 2025-06-07 09:05 | disposition home or self-care (01) ==
PROVIDERS: Emergency Provider Nurse Practitioner
DX: R35.0 Frequency of micturition (principal)
CPT/HCPCS: 81003; 87086; 87491; 87591; 87661; 99213; G0463

== ENCOUNTER 2025-07-24 08:25 | Emergency (ER) | payer BC, SELFPAY ==
--- OUTSIDE RECORDS SUMMARY | 2025-07-24 08:27 | XMS_ITS | Patient Health Record ---
Author Organization [facility] Address [address] [place] [address] Support Name Relationship Address Phone Ofelia Bansal Emergency Contact Unknown Unavailabl e FLORENCIA BANSAL Guarantor Unknown [phone] Allergies No Known Allergies Reason For Referral No Information Medications Medication SIG (Take, Route, Frequency, Duration) Notes Start Date End Date Status Azithromycin 500 MG 2 Oral DAILY; Duration: 1day(s) 09/19/2022 Active metroNIDAZOLE 500 MG 1 Oral BID; Duratio n: 7day(s) 09/19/2022 Active Diflucan 150 MG 1 Oral as directed; Duration: 30day(s) 1 tablet by mouth repeat in 3 days. 09/19/2022 Active Macrobid 100 MG 1 Oral BID; Duration : 7day(s) 03/03/2023 Active Amoxicillin 500 MG 1 Oral Q8h; Duration : 7day(s) 05/11/2022 Active Plan Of Treatment No Information Insurance Providers Payer Name Payer Address Payer Phone Subscriber Number Group Number Insured Name Patient Relationship to Insured Coverage Start Date Coverage End Date Bc [address] [place], [place] [id number] FLORENCIA BANSAL Self - patient is the insured 9
[2025-07-24 08:28] VITALS: BP 108/59; PULSE 96; RESP 14; TEMP 36.4; O2SAT 100
--- OUTSIDE RECORDS SUMMARY | 2025-07-24 08:28 | XMS_ITS | Clinical Summary ---
Author Organization [facility] Address [address] [place] [address] Phone Care Team Providers Care Receiving Room Clerk Name Role Phone Provider, Unknown Primary Care Provider Unavaila ble Allergies No known active allergies Medications ARIPiprazole (ABILIFY) 2 MG Tablet take 1 tablet by mouth every 24 hours 12/06/2024 Active Active Problems No known active problems Immunizations Immunization Administration Dates Next Due Covid-19, Mrna, Lnp-s, Pf, 3 0 Mcg/0.3 Ml Dose ([employer]) 06/25/2021,06/04/2021 DTAP VACCINE 09/24/2006 DTAP VACCINE, 5 [...] on file Legal Sex Female 12:00 PM TAX COMPLIANCE MANAGER Gender Identity Not on file Sexual Orientation Not on file Last Filed Vital Signs Vital Sign Reading Time Taken Comments Blood Pressure 106/60 12/20/2024 12:57 PM TAX COMPLIANCE MANAGER Pulse 98 12/20/2024 12:57 PM TAX COMPLIANCE MANAGER Temperature 36.3 C (97.3 F) 12/20/2024 12:57 PM TAX COMPLIANCE MANAGER Respiratory Rate 16 12/20/2024 12:57 PM TAX COMPLIANCE MANAGER Oxygen Saturation 99% 12/20/2024 12:57 PM TAX COMPLIANCE MANAGER Inhaled Oxygen Concentration - - Weight - - Height - - Body Mass Index - - Plan of Treatment Health Maintenance Due Date Last Done Comments Hepatitis C Virus (HCV) Screening 2005 DTaP/Tdap/Td Immunization (5 - Tdap) 2012 09/24/2006, 2005, 2005, Additional history exists Human Papillomavirus (HPV) Immunization (1 - 3-dose series) 2020 Meningococcal B Immunization (1 of 2 - Standard) 2021 Pneumococcal Immunization Combined (1 of 2 - PCV) 2024 06/17/2006, 2005, 2005, Additional history exists SARS-COV-2 Immunization (3 - season) 2024 06/25/2021, 06/04/2021 Influenza Immunization (#1) 2025 Respiratory Syncytial Virus (RSV) Immunization (Adult) (1 - 1-dose 75+ series) 2080 Hepatitis B Immunization Completed 006, 2005, 2005 Meningococcal Immunization (ACWY) Aged Out No longer eligible based on patient's age to complete this topic Rotavirus Immunization Aged Out No lo nger eligible based on patient's age to complete this topic Insurance [facility] Care Teams Receiving Room Clerk Relationship Specialty Start Date End Date Provider, Unknown UNKNOWN PCP - General 12/20/24
[2025-07-24 08:52] LABS: EDCOVIDSCREEN Negative (Negative); EDINFLUASCREEN Negative (Negative); EDINFLUBSCREEN Negative (Negative); EDSTREPNEGPOS1 Negative (Negative)
--- NOTE | 2025-07-24 09:12 | ED.URI ---
HPI - URI/Sore Throat General Chief Complaint: Upper Respiratory Infection Stated Complaint: cold flu Time Seen by Provider: 07/24/25 09:00 Source: patient and RN notes reviewed Mode of arrival: ambulatory Limitations: no limitations History of Present Illness HPI Narrative: 20-year-old female presents Express Care complaining cough, congestion, sore throat, runny nose for 2 days. Patient has any fevers, body aches, chills, nausea vomiting, chest pain, shortness of breath, earache, or any other symptoms. She is taking Benadryl without relief. Related Data Home Medications ?Medication ?Instructions ?Recorded ?Confirmed ?Last Taken ?Type aripiprazole 2 mg tablet mg 02/11/25 Unknown History iud 02/11/25 Unknown History fluoxetine .ROUTE 07/24/25 Unknown History tirzepatide 5 mg/0.5 mL mg subcut 07/24/25 Unknown History subcutaneous pen injector (Mounjaro) Allergies Allergy/AdvReac Type Severity Reaction Status Date / Time No Known Allergies Allergy Verified 07/24/25 08:34 Review of Systems Review of Systems: CONSTITUTIONAL: Denies fever, chills, body aches, or sweats. EYES: Denies visual changes, redness, or discharge. ENT: Positive for rhinorrhea, congestion, sore throat. Negative for otalgia. CARDIOVASCULAR: Denies chest pain, palpitations, or edema. RESPIRATORY: Positive for cough. Negative for dyspnea or wheezing. GASTROINTESTINAL: Denies abdominal pain, nausea, vomiting, or diarrhea. GENITOURINARY: Denies dysuria or hematuria. SKIN: Denies rash or itching. MUSCULOSKELETAL: Denies back pain, joint pain, or myalgia. NEUROLOGIC: Denies headache, numbness, or weakness. PSYCHIATRIC: Denies anxiety or depression. All other systems reviewed are negative, except as documented in HPI. [facility] Past Medical History Medical History Seasonal allergies Anxiety and depression Surgical History Surgical History History of tonsillectomy Social History Social History Smoking status: Never smoker Alcohol intake: unknown Substance use: unknown Living arrangements: with family Occupation/Education: student Gender identity (if verbalized by the patient): Female Comments At the time of my signature, I reviewed and agree with the nursing past medical, surgical, social, and family history. There is no relevant family history pertinent to the patient complaint. Exam Narrative: GENERAL: This is a well-nourished, well-developed adult, in no apparent distress. They are non ill-appearing, nontoxic appearing. HEAD: normocephalic, atraumatic. EYES: Sclera clear/white. Vision is grossly intact. Conjunctiva normal bilaterally. Extraocular movements intact. EARS: External ears normal, auditory canals clear and without drainage, TMs without erythema or perforation. Hearing grossly intact. NOSE: External nose normal with no obvious nasal discharge, nasal turbinates erythematous, no rhinorrhea. THROAT: Mucous membranes moist, posterior pharynx erythematous without exudate. Uvula is midline. Postnasal drip present. NECK: Neck supple, non-tender without lymphadenopathy, masses or thyromegaly. CARDIOVASCULAR: Regular rate and rhythm without murmurs, gallops, or rubs. RESPIRATORY: Clear to auscultation. Breath sounds equal bilaterally. No wheezes, rales, or rhonchi. SKIN: warm, Dry, intact with no suspicious lesions or rash, good texture and turgor. NEURO: awake, alert, and oriented to person, place and time. There were no obvious focal neurologic abnormalities. EXTREMITIES: No joint tenderness, effusion, or edema noted. BACK: Nontender without deformity. Course Course Emergency Course: Portions of this record may have been created with voice recognition software Level of Care: Express Care Visit Vital Signs Vital signs: Vital Signs Temperature 97.6 F 07/24/25 08:28 Pulse Rate 96 07/24/25 08:28 Respiratory Rate 14 07/24/25 08:28 Blood Pressure 108/59 L 07/24/25 08:28 Pulse Oximetry 100 07/24/25 08:28 Oxygen Delivery Room Air 07/24/25 08:28 Temperature 97.6 F 07/24/25 08:28 Pulse Rate 96 07/24/25 08:28 Respiratory Rate 14 07/24/25 08:28 Blood Pressure 108/59 L 07/24/25 08:28 Pulse Oximetry 100 07/24/25 08:28 Oxygen Delivery Room Air 07/24/25 08:28 MDM - URI/Sore Throat MDM Narrative Medical decision making narrative: Rapid COVID, flu, strep were negative. A throat cultures pending. Symptoms likely an upper respiratory viral infection. Discussed physical exam findings. Advised supportive measures and signs/symptoms to go to the ER. Pt is appropriate for outpt treatment and f/u. Differential Diagnosis Differential diagnosis: Likely upper respiratory infection, sinusitis, viral infection and pharyngitis Lab Data Attestation: I reviewed the patient's lab results. Labs: Lab Results 07/24/25 Range/Units 08:32 POC Influenza A Ag Negative (Negative) POC Influenza B Ag Negative (Negative) POC SARS CoV-2 Ag Negative (Negative) POC Grp A Strep Screen Negative (Negative) Discharge Plan Discharge Clinical Impression: Upper respiratory infection Qualifiers: URI type: unspecified viral URI Qualified Code(s): J06.9 - Acute upper respiratory infection, unspecified Patient Disposition: Home Condition: Stable Instructions: Antibiotic Form, Upper Respiratory Infection (ED) Additional Instructions: Your rapid strep swab, COVID, flu was negative today at [facility]. You will be notified in a few days if the throat culture comes back positive for strep, and appropriate antibiotics will be called in for your at that time. Your symptoms are likely due to a viral illness, which is not treated with antibiotics. Viral symptoms can be present for up to 10-14 days. Take Tylenol or ibuprofen for fever or pain. Follow instructions on the bottle. If your taking DayQuil or NyQuil do not take anymore Tylenol cassette artery contains Tylenol. Rest and stay hydrated. Follow up with your PCP in 3-5 days if symptoms are not improving. Go to the ER immediately if you developed difficulty breathing or swallowing Patient Language: Bermudian Prescriptions: No Action aripiprazole 2 mg tablet iud Mounjaro 5 mg/0.5 mL pen injector SUBCUT fluoxetine [Prozac] .ROUTE Follow-up/Referrals: PHYSICIAN,MARKING MACHINE OPERATOR [Primary Care Provider, Internal Medicine] Stand Alone Forms: Work/School Release IP Time of Disposition: 09:13
== END 2025-07-24 09:19 | disposition home or self-care (01) ==
DX: J06.9 Acute upper respiratory infection, unspecified (principal); Z20.822 Contact with and (suspected) exposure to COVID-19; F41.9 Anxiety disorder, unspecified; F32.A Depression, unspecified
CPT/HCPCS: 87081; 87426; 87804; 87880; 99213; G0463

== ENCOUNTER 2025-10-06 15:04 | Emergency (ER) | payer BC, SELFPAY ==
[2025-10-06 15:08] VITALS: BP 115/77; PULSE 84; RESP 14; TEMP 36.6; O2SAT 100
--- NOTE | 2025-10-06 15:35 | ED_ITS ---
HPI - Female Genitourinary General Chief complaint: Urogenital-Female Stated complaint: std Time Seen by Provider: 10/06/25 15:36 Source: patient, RN notes reviewed and old records reviewed Mode of arrival: ambulatory Limitations: no limitations History of Present Illness HPI Narrative: 2 year old female who presents to [facility] care with complaints of white discharge for about a week with some itching and burning and has some sores in the vaginal area. She also reports some urgency and frequency of urination for the past 3 days. Patient has IUD states has some spotting presently did a home test last week that was negative. Patient is requesting STD testing. Patient reports that she has had cold sores on her lips but has never had any lesions in vaginal area before. MD elicited complaint: UTI, vaginal discharge, possible STD and other (sores to vaginal area) Onset (ago): week(s) (1 week discharge 3 days urinary urgency and frequency) Location of symptoms: urethra and vaginal Severity: mild Vaginal discharge: white Vaginal bleeding: scant Urinary symptoms: Urgency and Frequency Treatment prior to arrival: none Sexual activity: Yes Patient : No Possible : at home test negative and other (IUD) Related Data Home Medications ?Medication ?Instructions ?Recorded ?Confirmed ?Last Taken ?Type aripiprazole 2 mg tablet mg 02/11/25 Unknown History iud 02/11/25 Unknown History fluoxetine .ROUTE 07/24/25 Unknown His tory tirzepatide 5 mg/0.5 mL mg subcut 07/24/25 Unknown History subcutaneous pen injector (Mounjaro) Allergies Allergy/AdvReac Type Severity Reaction Status Date / Time No Known Allergies Allergy Verified 07/24/25 08:34 Review of Systems Review of Systems: CONSTITUTIONAL: Denies fever, chills, or sweats. CARDIOVASCULAR: Denies chest pain, palpitations, or edema. RESPIRATORY: Denies cough or dyspnea. GASTROINTESTINAL: Denies abdominal pain, nausea, vomiting, or diarrhea. GENITOURINARY: Reports no dysuria,+ frequency, +urgency. Denies flank pain or hematuria. SKIN: Denies rash or itching reports lesions in vaginal area states some itching. MUSCULOSKELETAL: Denies back pain or myalgia. Denies CVA tenderness NEUROLOGIC: Denies headache All systems reviewed & are unremarkable except as noted in HPI and below [facility] Past Medical History Medical History Seasonal allergies Anxiety and depression Surgical History Surgical History History of tonsillectomy Social History Social History Smoking status: Never smoker Alcohol intake: unknown Substance use: unknown Living arrangements: with family Occupation/Education: student Gender identity (if verbalized by the patient): Female Comments At time of signature, agree with nursing past medical, surgical, social and family history. There is no relevant family history pertinent to the presenting complaint Exam 2 Narrative: GENERAL: Well-appearing, well-nourished, and in no acute distress. HEAD: Normocephalic, atraumatic. NECK: Supple.no lymphadenopathy CHEST: Clear to auscultation. No respiratory distress.SAO2 100% on room air HEART: Regular rate and rhythm. No murmur heard. Normal peripheral pulses. ABDOMEN: Soft, nontender, nondistended, normal active bowel sounds. No CVA tenderness EXTREMITIES: Normal range of motion. No edema. SKIN: Warm, dry, no rash.small blister type of lesion noted left labia majora with some tenderness along top of vaginal opening no discharge noted, reports some urgency and frequency of urination NEURO: No focal deficits. Alert and oriented x3. Course Course Emergency Course: Patient is aware of diagnosis, understands and agrees to treatment plan.? Anticipatory guidance given.? Patient agrees to follow-up as directed and is aware of reasons to seek care at the emergency department. Portions of this record may have been created with voice recognition software Level of Care: Express Care Visit Vital Signs Vital signs: Vital Signs Temperature 36.6 C 10/06/25 15:08 Pulse Rate 84 10/06/25 15:08 Respiratory Rate 14 10/06/25 15:08 Blood Pressure 115/77 10/06/25 15:08 Pulse Oximetry 100 10/06/25 15:08 Oxygen Delivery Room Air 10/06/25 15:08 Temperature 36.6 C 10/06/25 15:08 Pulse Rate 84 10/06/25 15:08 Respiratory Rate 14 10/06/25 15:08 Blood Pressure 115/77 10/06/25 15:08 Pulse Oximetry 100 10/06/25 15:08 Oxygen Delivery Room Air 10/06/25 15:08 reviewed MDM - Female Genitourinary MDM Narrative Medical decision making narrative: Exam findings and UA show no acute concerns or changes; patient is non-toxic appearing and is in no distress.? Patient is appropriate for outpatient treatment and follow-up. Differential Diagnosis Differential diagnosis: Likely urinary tract infection and cystitis Lab Data Attestation: I reviewed the patient's lab results. Lab results narrative: urine dip reviewed trace blood and urine cloudy, urine for GC,chylmydia, and trichomonas sent and viral culture sent of lesion area and top of vaginal opening Labs: Lab Results 10/06/25 10/06/25 10/06/25 Range/Units 15:32 15:38 15:49 POC Urine Color Light/pale POC Urine Clarity Cloudy POC Urine pH 6.5 POC Ur Specif Eros 1.010 POC Urine Protein Negative (Negative) POC Ur Glucose (UA) Negative (Negative) POC Urine Ketones Negative (Negative) POC Urine Blood Trace (Negative) POC Urine Nitrite Negative (Negative) POC Urine Bilirubin Negative (Negative) POC Urine Urobilinogen 0.2 POC U Leukocyte Esteras Negative (Negative) POC Urine HCG, Qual Negative (Negative) C. trachomatis (PCR) Detected A (NOT DETECTE) HSV I DNA PCR Pending HSV II DNA PCR Pending N. gonorrhoeae (PCR) Not detected (NOT DETECTE) T. vaginalis (PCR) Not detected (NOT DETECTE) reviewed Critical Care Time Critical Care Time Critical Care Time: No Discharge Plan Discharge Clinical Impression: Concern about STD in female without diagnosis, Herpes genitalis in women Patient Disposition: Home Condition: Stable Instructions: Antibiotic Form, Genital Herpes Infection (ED), Sexually Transmitted Diseases (ED), Safe Sex Practices (ED) Additional Instructions: Increase fluids especially cranberry juice and water Avoid caffeine and carbonated beverages urine culture sent Tylenol/ibuprofen for pain or fever Follow-up with her primary care provider if further problems or concerns Recheck if you have fever over 101, nausea and vomiting. testing for STDs and herpes sent Valtrex twice daily for 10 days abstain from sexual intercourse until test results are back you will be notified of test results within the next 3 days If your symptoms persist, change or worsen significantly before you can contact your personal physician then please, without delay, go to the emergency depart ment for further evaluation. Follow-up with PCP in 7-10 days or sooner if needed Patient Language: Marshallese Prescriptions: New valacyclovir [Valtrex] 500 mg tablet 500 mg PO Q12H Qty: 20 0RF No Action aripiprazole 2 mg tablet iud Mounjaro 5 mg/0.5 mL pen injector SUBCUT fluoxetine [Prozac] .ROUTE Follow-up/Referrals: PHYSICIAN,FUND ACCOUNTANT [Primary Care Provider, Internal Medicine] Time of Disposition: 15:54 Quality Vianey Coma Scale Eyes: Open Verbal: Oriented and Alert Motor: Follows Commands Buhl Coma Total Score: 15
[2025-10-06 15:43] LABS: EDUAAPPEAR Cloudy; EDUABILI Negative (Negative); EDUABLOOD Trace (Negative); EDUACOLOR1 Light/Pale; EDUAGLUCOSE Negative (Negative); EDUAKETONE Negative (Negative); EDUALEUKO Negative (Negative); EDUANITRATE Negative (Negative); EDUAPH 6.5; EDUAPROTEIN Negative (Negative); EDUASPGRAVITY 1.010; EDUAUROBILI 0.2
[2025-10-06 15:47] LABS: BEDSIDEPREGUCG Negative (Negative)
--- OUTSIDE RECORDS SUMMARY | 2025-10-06 17:59 | XMS_ITS | Patient Health Record ---
Author Organization [facility] Address [address] [place] [address] Support Name Relationship Address Phone Ofelia Bansal Emergency Contact Unknown Unavailabl e FLORENCIA BANSAL Guarantor Unknown [phone] Allergies No Known Allergies Reason For Referral [...] Date Coverage End Date Bc [address] [place], [place] [id number] FLORENCIA BANSAL Self - patient is the insured 9
[2025-10-06 20:08] LABS: Trichomonas Vag PCR NOT DETECTED (NOT DETECTE)
[2025-10-10 06:07] LABS: HSV-1 DNA Negative (Negative); HSV-2 DNA Negative (Negative)
== END 2025-10-06 16:02 | disposition home or self-care (01) ==
PROVIDERS: Emergency Provider Registered Nurse
DX: A60.00 Herpesviral infection of urogenital system, unspecified (principal); A74.9 Chlamydial infection, unspecified; F41.9 Anxiety disorder, unspecified; F32.A Depression, unspecified
CPT/HCPCS: 81003; 81025; 86615; 87086; 87491; 87529; 87591; 87661; 99213; G0463